=== PATIENT | female | born 1935 ===

== ENCOUNTER 2018-12-23 08:24 | Outpatient (CLI) | payer MEDICARE, OTHER | END 2018-12-23 08:25 | disposition home or self-care (01) | LOC: C.LAB 08:24 | DX: E11.9 Type 2 diabetes mellitus without complications (principal) ==

== ENCOUNTER 2019-03-27 08:00 | Outpatient (CLI) | payer MEDICARE, OTHER | END 2019-03-27 08:01 | disposition home or self-care (01) | LOC: C.LAB 08:00 | DX: E11.9 Type 2 diabetes mellitus without complications (principal); E05.90 Thyrotoxicosis, unspecified without thyrotoxic crisis or storm ==